=== PATIENT | female | born 1980 | race Caucasian/White ===

== ENCOUNTER 2021-10-21 20:05 | Emergency (ER) | payer OTHER, MEDICAID ==
[~2021-10-21] VITALS: Ht 172.7 cm; Wt 55.0 kg
[2021-10-21] MEDS ORDERED: PREDNISONE 20MG TABLET PO ONE (22:30)
[2021-10-21] MEDS ORDERED: KETOROLAC 30MG/ML VIAL IV ONE (22:30)
[2021-10-21 22:39] LABS: HEMATOCRIT 37.4 % (36.0-48.0); MEAN CORPUSCULAR HEMOGLOBIN 28.4 pg (28.0-32.0); MEAN CORPUSCULAR VOLUME 88.4 fL (81.0-99.0); PLATELET 156 x1000/uL (130-400); RED BLOOD CELL COUNT 4.23 mill/uL (4.2-5.4); RED CELL DISTRIBUTION WIDTH 13.2 % (11.6-14.6)
[2021-10-21 22:53] LABS: CHLORIDE 107 mEq/L (98-107)
[2021-10-21] MEDS ORDERED: SODIUM CHLORIDE 0.9% 1,000 ML IV ONE (23:45)
[2021-10-22] MEDS ORDERED: P20 MT (00:51)
[2021-10-22] MEDS ORDERED: INSULIN LISPRO 100 UNITS/ML SUBCUT ONE (01:00)
[2021-10-22 01:57] VITALS: BP 118/84
== END 2021-10-22 01:58 | disposition home or self-care (01) ==
LOC: ER 20:05
DX: M35.00 Sjogren syndrome, unspecified (principal); E11.65 Type 2 diabetes mellitus with hyperglycemia; Z91.14 Patient's other noncompliance with medication regimen; Z79.84 Long term (current) use of oral hypoglycemic drugs; Z59.00 Homelessness unspecified
CPT/HCPCS: 36415; 80053; 83036; 85027; 85651; 96361; 96374; 99283; J1815; J1885; J7512

== ENCOUNTER 2024-03-15 10:19 | Emergency (ER) | payer MEDICAID, OTHER ==
[~2024-03-15] VITALS: Ht 154.9 cm; Wt 63.5 kg
[~2024-03-15 10:19] MED LIST: P20 MT
[2024-03-15 10:32] VITALS: O2SAT 99
[2024-03-15 10:53] VITALS: BP 124/66; PULSE 90; RESP 14; TEMP 98.2; O2SAT 99
[2024-03-15] MEDS ORDERED: METR-167 MT (15:09)
== END 2024-03-15 13:24 | disposition home or self-care (01) ==
LOC: ER 10:31
DX: N76.0 Acute vaginitis (principal); A59.9 Trichomoniasis, unspecified; B96.89 Other specified bacterial agents as the cause of diseases classified elsewhere; E11.9 Type 2 diabetes mellitus without complications; Z90.49 Acquired absence of other specified parts of digestive tract
CPT/HCPCS: 87210; 99284; Z7610